=== PATIENT | male | born 1980 | race Two or more races ===

== ENCOUNTER 2020-12-05 06:20 | Outpatient (CLI) | payer OTHER | END 2020-12-05 06:40 | disposition home or self-care (01) | LOC: LAB 06:20 | DX: D64.89 Other specified anemias (principal); N39.0 Urinary tract infection, site not specified; E16.1 Other hypoglycemia; Z11.4 Encounter for screening for human immunodeficiency virus [HIV]; A64 Unspecified sexually transmitted disease ==